=== PATIENT | female | born 1975 | race Two or more races ===

== ENCOUNTER 2022-05-11 12:54 | Emergency (ER) | payer OTHER ==
[~2022-05-11] VITALS: Ht 154.9 cm; Wt 72.6 kg
== END 2022-05-11 18:34 | disposition home or self-care (01) ==
LOC: ER 12:54
DX: A90 Dengue fever [classical dengue] (principal); Z20.822 Contact with and (suspected) exposure to COVID-19; Z88.8 Allergy status to other drugs, medicaments and biological substances